=== PATIENT | female | born 1990 | race Caucasian/White ===

== ENCOUNTER 2024-12-22 21:34 | Emergency (ER) | payer BC ==
[~2024-12-22] VITALS: Ht 180.3 cm; Wt 99.5 kg
[2024-12-22 21:41] VITALS: BP 145/70; PULSE 79; O2SAT 99
[2024-12-22] MEDS ORDERED: CYCL-1 PO (21:56)
--- NOTE | 2024-12-22 21:57 | Physician Documentation ---
History of Present Illness ~ Chief Complaint: Back Pain Stated Complaint: BACK PAIN Time Seen by MD: 21:49 HPI 34-year-old female with history of lumbar back pain degenerative disc disease and sciatica has lost a significant amount of weight and about every few months has some exacerbating pain was on the [place] on a boat with the impact while sitting causing some muscle spasms and back pain. Patient denies any saddle paresthesia or traumatic injury. Medication Reconciliation Allergies: Coded Allergies: No Known Allergies (Unverified , 12/22/24) Scheduled Cyclobenzaprine* (Cyclobenzaprine*), 1 TAB PO Q8H Past Medical History Past Medical History: Chronic Pain, Chronic Back Pain Review of Systems All Other Systems at this time: Reviewed and Negative Musculoskeletal: Reports: see HPI Physical Exam Physical Exam Vital Signs: RN Vital Signs have been reviewed: Yes, Temperature: 98.6, Heart Rate: 79, Respiratory Rate: 16, BP: 145/70, Pulse Oximetry: 99, Weight: 99.500 Oxygen Flow Rate: 0 Physical Exam General: Alert, no apparent distress. HEENT: PERRL, EOMI, no injection, moist mucous membranes. Neck: Full range of motion. Respiratory: Lungs clear, no respiratory distress. Chest: No accessory muscle use. Cardiovascular: Regular rate and rhythm, no murmurs. Gastrointestinal: Soft, nontender, nondistended. Bowels sounds present. Extremities: Normal range of motion, no deformity. Spine: No spinal process deformity including step-offs or edema. Lumbar paraspinal muscle tenderness with rigidity noted bilaterally more on the left than the right. SI joint tenderness Neurologic: Oriented x4. Psychiatric: Normal mood and affect. Skin: Normal color, warm and dry. No edema, no ecchymosis. Progress Results/Orders Results/Orders Completed Orders - SLOANE HARRIS NP Ketorolac Trometh 30mg/Ml Vial (Toradol (12/22/24 21:45) Cyclobenzaprine Tablet (Flexeril Tablet) (12/22/24 21:45) Vital Signs 12/22/24 21:41 Temp 98.6 Pulse 79 Resp 16 B/P (MAP) 145/70 Pulse Ox 99 O2 Flow Rate 0 Medical Decision Making Findings Due to a seated position and impact while on a boat likely cause some strain and inflammation with acute on chronic lumbar sacral pain. Known disc disease. No falls or traumatic injuries. Medication management of exacerbation of pain and follow up with primary care Departure Time of Disposition: 21:56 Disposition: 01 HOME / SELF CARE / HOMELESS Impression: Primary Impression: Lumbosacral strain Condition: Stable Discharge Instructions: Lumbosacral Strain Additional Instructions: Medication as prescribed monitor for any new or worsening symptoms and follow up with primary care Referrals: NO PRIMARY CARE PROVIDER (PCP) Prescriptions Cyclobenzaprine* (Cyclobenzaprine*) 10 Mg Tablet 1 TAB PO Q8H for muscle spasms for 10 Days, #30 TAB 0 Refills Prov: SLOANE HARRIS NP 12/22/24 Education Educated: Patient, Family Educated regarding: diagnosis, treatment, need for follow up Signature Scribe Signature: No scribe Attestation: The note accurately reflects work and decisions made by me.Sloane Harris - MARAH 12/22/24 21:57 SLOANE HARRIS NP Dec 22, 2024 21:57
[2024-12-22 22:27] VITALS: RESP 18
[2024-12-22] MEDS: ketorolac trometh 30MG/ML vial 30 MG/ML VIAL IM ONE (22:27)
[2024-12-22 22:36] VITALS: TEMP 98.6
== END 2024-12-22 22:37 | disposition home or self-care (01) ==
LOC: ER 21:35
DX: S39.012A Strain of muscle, fascia and tendon of lower back, initial encounter (principal); Z79.899 Other long term (current) drug therapy; X58.XXXA Exposure to other specified factors, initial encounter; Y93.89 Activity, other specified; Y92.89 Other specified places as the place of occurrence of the external cause; Y99.8 Other external cause status
CPT/HCPCS: 96372; 99283; J1885